=== PATIENT | female | born 1945 | race Caucasian/White ===

== ENCOUNTER 2024-05-30 08:43 | Outpatient (OUT) | payer MEDICARE, OTHER, SELFPAY | END 2024-05-30 08:44 | disposition home or self-care (01) | LOC: WC 08:43 | PROVIDERS: PCP Internal Medicine; Visit Provider Podiatrist Foot & Ankle Surgery | DX: L97.818 Non-pressure chronic ulcer of other part of right lower leg with other specified severity (principal) | CPT/HCPCS: G0463 ==

== ENCOUNTER 2024-06-17 15:49 | Outpatient (OUT) | payer MEDICARE, OTHER, SELFPAY | END 2024-06-17 15:50 | disposition home or self-care (01) | LOC: WC 15:49 | PROVIDERS: PCP Internal Medicine; Visit Provider Podiatrist Foot & Ankle Surgery | DX: L97.818 Non-pressure chronic ulcer of other part of right lower leg with other specified severity (principal) | CPT/HCPCS: G0463 ==

== ENCOUNTER 2024-07-01 15:53 | Outpatient (OUT) | payer MEDICARE, OTHER, SELFPAY | END 2024-07-01 15:54 | disposition home or self-care (01) | LOC: WC 15:53 | PROVIDERS: PCP Internal Medicine; Visit Provider Physician Assistant | DX: L97.818 Non-pressure chronic ulcer of other part of right lower leg with other specified severity (principal) | CPT/HCPCS: G0463 ==

== ENCOUNTER 2024-07-04 10:04 | Outpatient (OUT) | payer MEDICARE, OTHER, SELFPAY ==
--- NOTE | 2024-07-04 10:07 | VEIN_ITS ---
[facility] [address] Patient Name: YOUNG AMATO MRN: [id number] date: 1945 Sex: F Assigned Patient Location: Current Patient Location: Accession/Order Number: [id number] Exam Date: 07/04/2024 10:07 Report Date: 07/04/2024 11:09 At the request of: CECILIA ZAYAS Procedure: VC SEGMENTAL PRESSURES EXAM: VC SEGMENTAL PRESSURES HISTORY: R09.89 COMPARISON: None. FINDINGS: Segmental pressures presented as follows (right, left) in mmHg. Brachial: 127, 137 Upper thigh: 179, 191 Lower thigh: 195, 137 Calf: 131, 133 DPA: 131, 101 LOCATION DIRECTOR: 125, 122 1st Toe: 123, 155 OLEG: 0.96, 0.89 TBI: 0.90, 1.13 The ABIs are Normal The TBI's are Acceptable PVR waveforms: Right leg: Thigh: Normal Above knee: Normal Below knee: Normal Right ankle: Normal Metatarsal: Moderate to severe ischemia Left leg: Thigh: Normal Above knee: Normal Below knee: Normal Right ankle: Normal Metatarsal: Severe ischemia VEIN/VC SEGMENTAL PRESSURES IMPRESSION: Ischemic waveform identified bilateral metatarsals, otherwise normal exam Electronically authenticated by: MINA MARCUM Date: 07/04/2024 11:09
== END 2024-07-04 10:05 | disposition home or self-care (01) ==
LOC: VC 10:04
PROVIDERS: PCP Internal Medicine; Visit Provider Physician Assistant
DX: R09.89 Other specified symptoms and signs involving the circulatory and respiratory systems (principal)
CPT/HCPCS: 93923

== ENCOUNTER 2024-07-08 15:41 | Outpatient (OUT) | payer MEDICARE, OTHER, SELFPAY | END 2024-07-08 15:42 | disposition home or self-care (01) | LOC: WC 15:41 | PROVIDERS: PCP Internal Medicine; Visit Provider Physician Assistant | DX: L97.818 Non-pressure chronic ulcer of other part of right lower leg with other specified severity (principal) | CPT/HCPCS: G0463 ==

== ENCOUNTER 2024-07-23 13:51 | Outpatient (OUT) | payer MEDICARE, OTHER, SELFPAY | END 2024-07-23 13:52 | disposition home or self-care (01) | LOC: WC 13:51 | PROVIDERS: PCP Internal Medicine; Visit Provider Physician Assistant | DX: L97.818 Non-pressure chronic ulcer of other part of right lower leg with other specified severity (principal) | CPT/HCPCS: G0463 ==

== ENCOUNTER 2024-08-13 11:18 | Outpatient (OUT) | payer MEDICARE, OTHER, SELFPAY | END 2024-08-13 11:19 | disposition home or self-care (01) | LOC: WC 11:18 | PROVIDERS: PCP Internal Medicine; Visit Provider Physician Assistant | DX: L97.818 Non-pressure chronic ulcer of other part of right lower leg with other specified severity (principal) | CPT/HCPCS: 11043 ==